=== PATIENT | male | born 1995 | race Caucasian/White ===

== ENCOUNTER 2020-03-24 16:24 | Emergency (ER) | payer OTHER ==
[~2020-03-24] VITALS: Ht 182.9 cm; Wt 102.3 kg
[2020-03-24 16:30] VITALS: BP 150/87; TEMP 98.4
[2020-03-24 17:52] VITALS: PULSE 73
== END 2020-03-24 17:52 | disposition home or self-care (01) ==
LOC: COL.ER 16:24
DX: T63.441A Toxic effect of venom of bees, accidental (unintentional), initial encounter (principal); M79.89 Other specified soft tissue disorders